=== PATIENT | male | born 1995 | race Caucasian/White ===

== ENCOUNTER 2017-10-19 20:53 | Emergency (ER) | payer OTHER ==
[~2017-10-19] VITALS: Ht 172.7 cm; Wt 82.0 kg
[2017-10-20 01:35] VITALS: BP 132/74
== END 2017-10-20 02:06 | disposition home or self-care (01) ==
LOC: ER 22:27
DX: G51.0 Bell's palsy (principal); F12.10 Cannabis abuse, uncomplicated; F17.210 Nicotine dependence, cigarettes, uncomplicated
CPT/HCPCS: 99283